=== PATIENT | female | born 1930 | race African-American/Black ===

== ENCOUNTER 2016-07-20 05:48 | Emergency (ER) | payer OTHER ==
[~2016-07-20] VITALS: Ht 162.6 cm; Wt 60.0 kg
[2016-07-20] MEDS ORDERED: SODIUM CHLORIDE 0.9% 1,000 ML IV ONE (06:46)
[2016-07-20] MEDS ORDERED: LORAZEPAM 2MG/ML CPJ IM STA (06:46)
[2016-07-20] MEDS ORDERED: OLANZAPINE 10 MG/VIAL IM ONE (07:15)
[2016-07-20 07:16] LABS: BASOPHILS % 0.9 % (0.0-2.0); EOSINOPHILS % 0.6 % (0.0-5.0); HEMATOCRIT. 39.3 % (36.0-48.0); HEMOGLOBIN. 13.1 g/dL (12.0-16.0); LYMPHOCYTES % 44.1 % (20.0-50.0); MEAN CORPUSCULAR HEMOGLOBIN 30.2 pg (28.0-32.0); MEAN CORPUSCULAR HGB CONC 33.4 g/dL (31.0-37.0); MEAN CORPUSCULAR VOLUME 90.2 fL (81.0-99.0); MEAN PLATELET VOLUME 7.5 fl (7.4-10.4); MONOCYTES % 10.2 % (2.0-8.0); NEUTROPHILS % 44.2 % (40.0-76.0); PLATELET 222 x1000/uL (130-400); RED BLOOD CELL COUNT 4.35 mill/uL (4.2-5.4); RED CELL DISTRIBUTION WIDTH 13.7 % (11.6-14.6)
[2016-07-20 07:19] LABS: GLUCOSE URINE NEGATIVE (NEGATIVE); KETONES URINE NEGATIVE (NEGATIVE); LEUKOCYTE ESTERASE URINE NEGATIVE (NEGATIVE); NITRITE URINE NEGATIVE (NEGATIVE); OCCULT BLOOD URINE TRACE (NEGATIVE); PROTEIN URINE NEGATIVE (NEGATIVE); SPECIFIC GRAVITY URINE 1.011 (1.005-1.030); UROBILINOGEN URINE 0.2 E.U./dL (0.2-1.0)
[2016-07-20 07:20] LABS: CLARITY URINE CLEAR (CLEAR); COLOR URINE YELLOW (YELLOW)
[2016-07-20 07:24] LABS: INR 1.2; PROTHROMBIN TIME 12.4 sec
[2016-07-20 07:28] LABS: AMMONIA 15 uMol/L (<32); INDEX HEMOLYSI 2 (1-3)
[2016-07-20 07:30] LABS: *AMPHETAMINES SCREEN URINE NEGATIVE (NEGATIVE); *BARBITURATES SCREEN URINE NEGATIVE (NEGATIVE); *BENZODIAZEPINES SCREEN URINE NEGATIVE (NEGATIVE); *COCAINE SCREEN URINE NEGATIVE (NEGATIVE); CANNABINOID URINE SCREEN NEGATIVE (NEGATIVE); ECSTASY MDMA SCREEN URINE NEGATIVE (NEGATIVE); METHADONE URINE SCREEN NEGATIVE (NEGATIVE); OPIATES URINE SCREEN NEGATIVE (NEGATIVE); PHENCYCLIDINE URINE SCREEN NEGATIVE (NEGATIVE)
[2016-07-20 07:32] LABS: ACETAMINOPHEN < 2 ug/mL (10-30); ALANINE AMINOTRANSFERASE 27 IU/L (13-61); ALBUMIN 3.3 g/dL (3.4-5.0); ANION GAP 15; CALCIUM 9.4 mg/dL (8.5-10.1); CARBON DIOXIDE 27 mEq/L (21-32); CHLORIDE 101 mEq/L (98-107); ETHANOL BLOOD < 10 mg/dL; INDEX HEMOLYSI 1 (1-3); INDEX ICTERIC 1 (1-4); INDEX LIPEMIC 1 (1-3); LIPASE 285 IU/L (73-393); NT PRO B-TYPE NATRIURETIC PEP 27 pg/mL (5-125); TROPONIN I < 0.02 ng/mL (0.00-0.04); UREA NITROGEN BLOOD 15 mg/dL (7-21); eGFR > 60 mL/min (>60)
[2016-07-20 07:34] LABS: SQUAMOUS EPITHELIAL CELL URINE 3+ /lpf (RARE/1+)
[2016-07-20 07:37] LABS: WBC URINE 0-2 /hpf (0-2)
[2016-07-20 07:38] LABS: BACTERIA URINE TRACE
[2016-07-20 10:07] VITALS: BP 147/64
== END 2016-07-20 10:26 | disposition short-term general hospital (02) ==
LOC: ER 05:48 → EDBD 05:48 → ER 05:58
DX: R41.82 Altered mental status, unspecified (principal); R45.1 Restlessness and agitation; E78.00 Pure hypercholesterolemia, unspecified; I10 Essential (primary) hypertension
CPT/HCPCS: 36415; 71010; 80053; 80305; 80307; 80329; 81001; 82140; 83605; 83690; 83880; 84484; 85025; 85610; 93005; 96360; 96372; 99285; G0482; J2060; J3490; J7030